=== PATIENT | female | born 1970 | race Caucasian/White ===

== ENCOUNTER 2022-06-16 14:00 | Observation (INO) ==
[2022-06-16] MEDS ORDERED: Acetaminophen 325 MG TABLET PO PRN (17:27)
[2022-06-16] MEDS ORDERED: Ondansetron 4 MG/2 ML VIAL IVP PRN (17:27)
[2022-06-16] MEDS ORDERED: *HR* OxyCODONE Immed Rel 5 MG TABLET PO PRN (17:27)
[2022-06-16] MEDS ORDERED: Naloxone 0.4 MG/ML INJ IVP PRN (17:27)
[2022-06-16] MEDS ORDERED: Iopamidol - 370 500 ML MLS IVP ONE (17:59)
[2022-06-16] MEDS: *HR* HYDROcodone/Acet 5/325 mg TABLET PO PRN (18:05)
[2022-06-16] MEDS: Pregabalin 50 MG CAPSULE PO SCH (23:23)
[2022-06-17 05:22] LABS: Basophils % 0.3 %; Eosinophils # 0.1 K/mcL (0.0-0.6); Eosinophils % 1.1 %; Hematocrit 42.5 % (35.3-44.9); Hemoglobin 14.2 g/dL (11.5-15.4); Immature Granulocytes % 0.3 % (0-4); Lymphocytes # 2.1 K/mcL (0.6-4.6); Lymphocytes % 29.4 %; Mean Corpuscular HGB Conc 33.4 g/dL (31.6-35.5); Mean Corpuscular Hemoglobin 30.6 pg (28.0-33.3); Mean Corpuscular Volume 91.6 fL (83.0-100.0); Mean Platelet Volume 10.3 fL (9.4-12.4); Monocytes # 0.6 K/mcL (0.0-1.3); Monocytes % 8.1 %; Neutrophils # 4.3 K/mcL (1.6-8.9); Platelet Count 239 K/mcL (140-400); Red Blood Count 4.64 M/mcL (3.82-4.97); Red Cell Distribution Width 13.1 % (11.5-14.5); Segmented Neutrophils % 60.8 %; White Blood Count 7.1 K/mcL (4.3-11.1)
[2022-06-17 05:26] LABS: INR 1.1; Prothrombin Time 12.6 Seconds (9.4-12.1)
[2022-06-17 05:40] LABS: Calcium 9.4 mg/dL (8.6-10.3); Magnesium 2.3 mg/dL (1.6-2.6); Potassium 4.4 mEq/L (3.5-5.1)
[2022-06-17 06:03] LABS: Folate 15.3 ng/mL (3.0-16.0)
[2022-06-17] MEDS ORDERED: *HR* Enoxaparin 40 MG/0.4 ML SYRINGE SQ SCH (07:00)
[2022-06-17 07:26] VITALS: O2SAT 97
[2022-06-17] MEDS: Pregabalin 50 MG CAPSULE PO SCH (08:27)
[2022-06-17 10:47] VITALS: BP 141/92; PULSE 75; TEMP 97.8
[2022-06-17] MEDS: *HR* HYDROcodone/Acet 5/325 mg TABLET PO PRN (12:17)
[2022-06-17] MEDS ORDERED: Cyanocobalamin (B-12) 1,000 MCG/ML VIAL SQ ONE (12:29)
== END 2022-06-17 16:36 | disposition home or self-care (01) ==
LOC: 3ANU → SUATTDRO 16:41
PROVIDERS: ADMIT Pharmacist; ATTEND Pharmacist